=== PATIENT | female | born 2000 | race Caucasian/White ===

== ENCOUNTER 2019-04-26 10:17 | Emergency (ER) | payer OTHER ==
--- NOTE | 2019-04-26 11:41 | ED ---
Seizure - HPI Summary HPI Summary: Patient is a 19-year-old female who presents emergency department after a seizure that occurred just prior to arrival. Patient notes chest history of tonic clonic seizures and follows with a neurologist in [facility]. Patient is currently going to [facility]. Patient states she typically has one seizure per month. Patient was here last week with a seizure as well. Patient states it is abnormal for her to have seizures this close together. Patient states she was walking through campus today when she had a seizure and was cared for by security. Patient denies any injuries or pain currently. Patient back to her baseline. Patient currently taking Lamictal 300 mg twice a day. She states that her Lamictal was increased last week. Patient notes she has had a productive cough for about one week. She also notes she has not been sleeping well the last few days. Symptoms are moderate in severity. No current modifying factors. 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 - History Of Current Complaint Chief Complaint: EDSeizure Time Seen by Provider: 04/26/19 11:05 Hx Obtained From: Patient - Allergies/Home Medications Allergies/Adverse Reactions: Allergies Allergy/AdvReac Type Severity Reaction Status Date / Time No Known Allergies Allergy Verified 04/26/19 10:23 PMH/Surg Hx/FS Hx/Imm Hx Previously Healthy: Yes Infectious Disease History: No Infectious Disease History: Denies: Traveled Outside the [place] in Last 30 Days - Family History Known Family History: Positive: Non-Contributory - Social History Occupation: Student Lives: Dormitory/Roommates Alcohol Use: None Hx Substance Use: Yes Substance Use Type: Reports: Marijuana Substance Use Comment - Amount & Last Used: medical Smoking Status (MU): Never Smoked Tobacco Review of Systems Constitutional: Negative Negative: Fever, Chills Eyes: Negative ENT: Negative Cardiovascular: Negative Positive: Cough. Negative: Shortness Of Breath Gastrointestinal: Negative Negative: Abdominal Pain, Vomiting, Diarrhea Genitourinary: Negative Negative: dysuria Musculoskeletal: Negative Skin: Negative Neurological: Other - seizure Negative: Headache All Other Systems Reviewed And Are Negative: Yes Physical Exam Triage Information Reviewed: Yes Vital Signs On Initial Exam: Initial Vitals Pulse Pulse Ox 95 100 04/26/19 10:19 04/26/19 10:19 Vital Signs Reviewed: Yes Appearance: Positive: Well-Appearing - Pt. sitting up in bed in NAD. Skin: Positive: Warm, Dry Head/Face: Positive: Normal Head/Face Inspection Eyes: Positive: Normal, EOMI, ANDRES, Conjunctiva Clear ENT: Positive: Pharynx normal, TMs normal, Other Neck: Positive: Supple, Nontender Respiratory/Lung Sounds: Positive: Other - Mild rhonchi in RLL Cardiovascular: Positive: Normal, RRR Abdomen Description: Positive: Nontender, Soft Musculoskeletal: Positive: Normal, Strength/ROM Intact Neurological: Positive: Normal, Alert, Oriented to Person Place, Time, CN Intact II-III Psychiatric: Positive: Affect/Mood Appropriate Diagnostics - Vital Signs Vital Signs Temp Pulse Resp BP Pulse Ox 04/26/19 10:20 97.5 F 92 16 121/67 100 04/26/19 10:19 95 100 - Laboratory Result Diagrams: 04/26/19 10:49 04/26/19 10:49 Lab Statement: Any lab studies that have been ordered have been reviewed, and results considered in the medical decision making process. Course/Dx - Course Course Of Treatment: Pt. presenting for evaluation after seizure. Pt. sustained no injuries. Exam unremarkable and she is back to her baseline. Basic labs and cxr obtained given week plus productive cough. CBC unremarkable. CMP shows mild elevation in glucose of 138, AST and ALT of 89 and 210. Pending lamictal level. U/A negative. Pt. has had no further seizure activity in ED. Case discussed with Dr. Gusman who recommends waiting for lamictal level before making any med changes. He feels elevated liver enzymes may be secondary to pt.' s high does of Prozac. He recommends pt. contact her neurologist and psychiatrist today for further recommendations. Will call pt. with lamictal level. Pt. understands and agrees with plan. Will return if sxs change or worsen. - Diagnoses Provider Diagnoses: Seizure Discharge ED - Sign-Out/Discharge Documenting (check all that apply): Patient Departure Patient Received Moderate/Deep Sedation with Procedure: No - Discharge Plan Condition: Improved Disposition: HOME Patient Education Materials: Recurrent Seizures in Adults (ED) Forms: *School Release Referrals: [facility] @ [Outside] Additional Instructions: Call your neurologist and psychiatrist today to discuss your medication Will call if Lamictal level is low Schedule a follow up appointment with health clinic in 2-3 days Increase fluids and rest Return to ER if symptoms change or worsen - Billing Disposition and Condition Condition: IMPROVED Disposition: Home
[2019-04-26 11:59] LABS: HIV 4th Generation Nonreactive (Nonreactive)
[2019-04-26 13:05] LABS: ABS Monocytes 0.3 10^3/ul (0-0.8); ABS Neutrophils 2.4 10^3/ul (1.5-7.7); Eosinophil % 0.9 %; Hematocrit 38 % (35-47); Hemoglobin 12.9 g/dL (12.0-16.0); Lymphocyte % 27.9 %; Mean Corpuscular HGB Conc 34 g/dL (31-36); Mean Corpuscular Hemoglobin 33 pg (27-31); Mean Corpuscular Volume 96 fL (80-97); Mean Platelet Volume 8.4 fL (7.4-10.4); Platelet Count 336 10^3/uL (150-450); Red Blood Count 3.98 10^6 /uL (3.70-4.87); Red Cell Distribution Width 13 % (10-15); White Blood Count 3.8 10^3/uL (3.5-10.8)
[2019-04-26 13:12] LABS: Albumin 4.6 g/dL (3.2-5.2); Albumin/Globulin Ratio 2.1 (1-3); BUN/Creatinine Ratio 14.3 (8-20); Calcium 9.4 mg/dL (8.6-10.3); EGFR African American 94.4 (>60); Globulin 2.2 g/dL (2-4); Potassium 3.8 mmol/L (3.5-5.0); Total Bilirubin 0.4 mg/dL (0.2-1.0); Total Protein 6.8 g/dL (6.4-8.9)
[2019-04-26 13:18] LABS: HCG Pregnancy 0.6 mIU/mL
[2019-04-26 13:26] LABS: TSH (Thyroid Stimulating Horm) 1.71 mcIU/mL (0.34-5.60)
[2019-04-26 13:56] LABS: Urine Appearance Cloudy; Urine Bacteria 2+ (Absent); Urine Bilirubin Negative (Negative); Urine Blood 1+ (Negative); Urine Color Yellow; Urine Glucose Negative (Negative); Urine Ketones Trace (Negative); Urine Nitrite Negative (Negative); Urine Protein Negative (Negative); Urine Red Blood Cell Trace(0-2/hpf) (Absent); Urine Specific Gravity 1.019 (1.010-1.030); Urine Squamous Epithelial Cell Present (Absent); Urine Urobilinogen Negative (Negative); Urine White Blood Cell Trace(0-5/hpf) (Absent)
[2019-04-26 15:02] VITALS: BP 126/72
== END 2019-04-26 15:01 | disposition home or self-care (01) ==
LOC: ED 10:17
DX: R56.9 Unspecified convulsions (principal); Z79.899 Other long term (current) drug therapy
CPT/HCPCS: 36415; 71046; 80053; 80175; 81003; 81015; 84443; 84702; 85025; 87086; 87389; 99283

== ENCOUNTER 2019-05-02 11:54 | Emergency (ER) | payer OTHER ==
--- NOTE | 2019-05-02 12:26 | ED ---
Neurological HPI - HPI Summary HPI Summary: This patient is a 19 year old F presenting to [facility] by EMS with a chief complaint of vertigo since 824. Pt had seizure on 04/26/19, and pt had an increase in dosage in her medication, lamictal. As pt had two seizures in a two week time frame, and previously to that she was only having seizures once every few months. After the increase in dosage pt started feeling side effects of vertigo. Then this morning she went to class, and felt vertigo, nausea, and when she tried to walk to convenience store to get food and she could properly walk. Patient reports resolved double vision. Pt took the medication around 0730 , and the symptoms began around 0825. Pt reports the last medication she took caused even worse symptoms. And then when she began the lower dosage of lamictal it had no side effect. Pt reports the symptoms can last for hours. Pt s neurologist is Dr. Sandoval, and Dr. Arriaga at [facility]. Pt has a PMHx of epilepsy, prediabetes, and depression. Medications reviewed. Allergies noted - History of Current Complaint Chief Complaint: EDNeurologicalDeficit Stated Complaint: NAUSEA/ TREMORS PER EMS Time Seen by Provider: 05/02/19 12:03 Hx Obtained From: Patient Onset/Duration: Gradual Onset, Started days ago, Still Present Timing: Intermittent Episodes Lasting: - hours Number of Seizures: 1 - 04/26/19 Pain Intensity: 0 Pain Scale Used: 0-10 Numeric Character: Room Spinning, Dizzy, Visual Changes Aggravating: Medication Change Alleviating: Spontanious Resolution Associated Signs and Symptoms: Positive: Unsteady Gait, Visual Changes, Dizziness, Nausea/Vomiting, Change in Medication Related Hx: Seizure - Allergy/Home Medications Allergies/Adverse Reactions: Allergies Allergy/AdvReac Type Severity Reaction Status Date / Time No Known Allergies Allergy Verified 04/26/19 10:23 PMH/Surg Hx/FS Hx/Imm Hx Neurological History: Reports: Hx Seizures, Other Neuro Impairments/Disorders - Epilepsy Psychiatric History: Reports: Hx Depression - Surgical History Surgical History: None Infectious Disease History: No Infectious Disease History: Denies: Traveled Outside the [place] in Last 30 Days - Family History Known Family History: Negative: Hypertension, Diabetes Family History: Only FHx from father's side known - Social History Occupation: Student Alcohol Use: None Hx Substance Use: Yes Substance Use Type: Reports: Marijuana Substance Use Comment - Amount & Last Used: medical Smoking Status (MU): Never Smoked Tobacco Review of Systems Positive: Blurred Vision Positive: Nausea Neurological: Other - dizziness, unsteady gait All Other Systems Reviewed And Are Negative: Yes Physical Exam - Summary Physical Exam Summary: Constitutional: Well-developed, Well-nourished, Alert. (-) Distressed Skin: Warm, Dry HENT: Normocephalic; Atraumatic Eyes: Conjunctiva normal Neck: Musculoskeletal ROM normal neck. (-) JVD, (-) Stridor, (-) Tracheal deviation Cardio: Rhythm regular, rate normal, Heart sounds normal; Intact distal pulses; The pedal pulses are 2+ and symmetric. Radial pulses are 2+ and symmetric. (-) Murmur Pulmonary/Chest wall: Effort normal. (-) Respiratory distress, (-) Wheezes, (-) Rales Abd: Soft. (-) Tenderness, (-) Distension, (-) Guarding, (-) Rebound Musculoskeletal: (-) Edema Lymph: (-) Cervical adenopathy Neuro: Alert, Oriented x3, Strength normal, Cranial nerves II-XII are grossly intact. (-) Dysmetria, (-) Nystagmus, (-) Ataxia by finger to nose testing, (-) Sensory deficit. Walks with steady gait, Psych: Appear anxious, tearful Triage Information Reviewed: Yes Vital Signs On Initial Exam: Initial Vitals Temp Pulse Resp BP Pulse Ox 98.9 F 88 16 123/77 97 05/02/19 12:04 05/02/19 12:04 05/02/19 12:04 05/02/19 12:04 05/02/19 12:04 Vital Signs Reviewed: Yes Diagnostics - Vital Signs Vital Signs Temp Pulse Resp BP Pulse Ox 05/02/19 12:04 98.9 F 88 16 123/77 97 - Laboratory Result Diagrams: 05/02/19 12:38 05/02/19 12:38 Lab Statement: Any lab studies that have been ordered have been reviewed, and results considered in the medical decision making process. Re-Evaluation - Re-Evaluation First Eval Re-Evaluation Time: 13:28 Comment: Discussed results and plan of care Course/Dx - Course Course Of Treatment: Patient is here with daily vertigo symptoms after taking her increased dose of Lamictal. HEENT had a normal neurologic exam here with improvement of symptoms evaluated. Patient had a CBC and CMP performed which are both unremarkable. Patient is not . Patient was offered a neurology consultation here but declined. Patient is going to take medical leave from school to go back to her neurologist is in the next couple of days. - Diagnoses Provider Diagnoses: Medication side effects, Vertigo, Epilepsy, Depression Discharge ED - Sign-Out/Discharge Documenting (check all that apply): Patient Departure - Discharge Patient Received Moderate/Deep Sedation with Procedure: No - Discharge Plan Condition: Stable Disposition: HOME Patient Education Materials: Vertigo (ED), Epilepsy (ED) Referrals: [facility] [[employer], [employer], OTHER] - As Soon As Possible Additional Instructions: Call neurologist at [facility] as soon as possible to discuses side effect lamictal. PLEASE RETURN TO EMERGENCY DEPARTMENT FOR ANY NEW OR WORSENING SYMPTOMS. Please follow up with your primary care physician. Please make all follow-ups as soon as possible unless I advise you otherwise - Billing Disposition and Condition Condition: STABLE Disposition: Home - Attestation Statements Document Initiated by Telmaibe: Yes Documenting Scribe: Natalie Live Provider For Whom Telmaibe is Documenting (Include Credential): Rafiq Donovan MD Scribe Attestation: Natalie Lopez, scribed for Rafiq Donovan MD on 05/02/19 at 1832. Scribe Documentation Reviewed: Yes Provider Attestation: The documentation as recorded by the Natalie coreas accurately reflects the service I personally performed and the decisions made by me, Rafiq Donovan MD Status of Scribe Document: Viewed
[2019-05-02 12:48] LABS: ABS Lymphocytes 1.5 10^3/ul (1.0-4.8); ABS Monocytes 0.5 10^3/ul (0-0.8); ABS Neutrophils 5.1 10^3/ul (1.5-7.7); Eosinophil % 0.4 %; Hematocrit 40 % (35-47); Hemoglobin 13.8 g/dL (12.0-16.0); Lymphocyte % 20.6 %; Mean Corpuscular HGB Conc 35 g/dL (31-36); Mean Corpuscular Hemoglobin 33 pg (27-31); Mean Corpuscular Volume 94 fL (80-97); Mean Platelet Volume 7.8 fL (7.4-10.4); Platelet Count 399 10^3/uL (150-450); Red Blood Count 4.22 10^6 /uL (3.70-4.87); Red Cell Distribution Width 14 % (10-15); White Blood Count 7.2 10^3/uL (3.5-10.8)
[2019-05-02 13:07] LABS: ALT 115 U/L (7-52); AST 55 U/L (13-39); Albumin 4.7 g/dL (3.2-5.2); Alkaline Phosphatase 110 U/L (34-104); Anion Gap 7 mmol/L (2-11); BUN/Creatinine Ratio 11.7 (8-20); Blood Urea Nitrogen 11 mg/dL (6-24); CO2 Carbon Dioxide 28 mmol/L (22-32); Calcium 9.6 mg/dL (8.6-10.3); Chloride 102 mmol/L (101-111); EGFR Non-African American 75.2 (>60); Globulin 2.3 g/dL (2-4); Glucose 152 mg/dL (70-100); Potassium 3.8 mmol/L (3.5-5.0); Sodium 137 mmol/L (135-145)
[2019-05-02 13:14] LABS: HCG Pregnancy < 0.60 mIU/mL
[2019-05-02 13:39] LABS: TSH (Thyroid Stimulating Horm) 0.78 mcIU/mL (0.34-5.60)
[2019-05-02 14:16] VITALS: BP 121/66
== END 2019-05-02 14:18 | disposition home or self-care (01) ==
LOC: ED 11:54
DX: R42 Dizziness and giddiness (principal); R11.0 Nausea; R26.81 Unsteadiness on feet; T42.6X5A Adverse effect of other antiepileptic and sedative-hypnotic drugs, initial encounter; Y92.9 Unspecified place or not applicable; Z32.02 Encounter for pregnancy test, result negative; G40.909 Epilepsy, unspecified, not intractable, without status epilepticus; F32.9 Major depressive disorder, single episode, unspecified
CPT/HCPCS: 36415; 80053; 84443; 84702; 85025; 99282

== ENCOUNTER 2019-05-06 12:37 | Emergency (ER) | payer OTHER ==
[2019-05-06 13:26] LABS: ABS Lymphocytes 0.5 10^3/ul (1.0-4.8); ABS Monocytes 0.5 10^3/ul (0-0.8); Hematocrit 40 % (35-47); Hemoglobin 13.6 g/dL (12.0-16.0); Lymphocyte % 3.8 %; Mean Corpuscular HGB Conc 34 g/dL (31-36); Mean Corpuscular Hemoglobin 32 pg (27-31); Mean Corpuscular Volume 94 fL (80-97); Platelet Count 353 10^3/uL (150-450); Red Blood Count 4.23 10^6 /uL (3.70-4.87); Red Cell Distribution Width 14 % (10-15); White Blood Count 14.2 10^3/uL (3.5-10.8)
--- NOTE | 2019-05-06 13:27 | ED ---
Neurological HPI - HPI Summary HPI Summary: This patient is a 19 year old F presenting to [facility] accompanied by her mother with a chief complaint of an episode of seizure about 1015 05/06/19 that lasted about 4 minutes long. Patient reports to be confused, foggy, tired, nauseated, vomiting slightly, and experiencing tremors afterwards. Mother reports pt hit her head on the back of a chair. Patient is back to her baseline now, denies headache. Mother reports that her dose of Lamictal was inc to 300 up to 1 month ago per her neurologist at [facility]. Mother reports she used to have partial complex seizures and then back in August 2018 she started having tonic-clonic seizures. Mother reports that the only change was the increase in Lamictal about 3 seizures ago. Mother reports she used to have 1 seizure every 3-4 months but now has them almost once a week now. They have d/w her neurologist about adding a second agent (keppra or Onfi) however they wanted to discuss this with her psychiatrist given hx depression. Patient took her dose of Lamictal at about 0900 this morning, 05/06/19. - History of Current Complaint Chief Complaint: EDSeizure Stated Complaint: SEISURES/REACTION TO MEDS PER PT MOM Time Seen by Provider: 05/06/19 13:10 Hx Obtained From: Patient, Family/Psychology Physician - mother Onset/Duration: Started hours ago, Still Present Pain Intensity: 0 Pain Scale Used: 0-10 Numeric Episode Lasting: Seconds/Minutes - 4 minutes Aggravating: Nothing Alleviating: Nothing Associated Signs and Symptoms: Positive: Confusion, Nausea/Vomiting - Allergy/Home Medications Allergies/Adverse Reactions: Allergies Allergy/AdvReac Type Severity Reaction Status Date / Time No Known Allergies Allergy Verified 05/06/19 12:43 PMH/Surg Hx/FS Hx/Imm Hx Neurological History: Reports: Hx Seizures, Other Neuro Impairments/Disorders - Epilepsy Psychiatric History: Reports: Hx Depression Infectious Disease History: No Infectious Disease History: Denies: Traveled Outside the [place] in Last 30 Days - Family History Known Family History: Positive: Non-Contributory Negative: Hypertension, Diabetes Family History: Only FHx from father's side known - Social History Alcohol Use: None Hx Substance Use: Yes Substance Use Type: Reports: Marijuana Substance Use Comment - Amount & Last Used: medical Hx Tobacco Use: No Smoking Status (MU): Never Smoked Tobacco Review of Systems Positive: Vomiting, Nausea Neurological: Other - seizure, confusion, foggy, tired, and tremors All Other Systems Reviewed And Are Negative: Yes Physical Exam - Summary Physical Exam Summary: Constitutional: Well-developed, Well-nourished, Alert. (-) Distressed Skin: Warm, Dry HENT: Normocephalic; Atraumatic Eyes: Conjunctiva normal Neck: Musculoskeletal ROM normal neck. (-) JVD, (-) Stridor, (-) Nuchal rigidity Cardio: Rhythm regular, rate normal, Heart sounds normal; Intact distal pulses Pulmonary/Chest wall: Effort normal. (-) Respiratory distress, (-) Wheezes, (-) Rales Abd: Soft, (-) tenderness, (-) Distension, (-) Guarding, (-) Rebound Musculoskeletal: (-) Edema Lymph: (-) Cervical adenopathy Psych: Mood and affect Normal Triage Information Reviewed: Yes Vital Signs On Initial Exam: Initial Vitals Temp Pulse Resp BP Pulse Ox 98.5 F 78 16 106/58 95 05/06/19 12:39 05/06/19 12:39 05/06/19 12:39 05/06/19 12:39 05/06/19 12:39 Vital Signs Reviewed: Yes Diagnostics - Vital Signs Vital Signs Temp Pulse Resp BP Pulse Ox 05/06/19 12:39 98.5 F 78 16 106/58 95 - Laboratory Result Diagrams: 05/06/19 13:19 05/06/19 13:19 Lab Statement: Any lab studies that have been ordered have been reviewed, and results considered in the medical decision making process. Re-Evaluation - Re-Evaluation First Eval Re-Evaluation Time: 14:20 Comment: Jillian recommends talking to the neurologist at [facility]. Second Eval Comment: 3:45 discussed with mom and patient that the on-call neurologist for her neurologist at [facility] recommended adding Onfi 5mg qhs if she would like. Patient states she will think about it, prescription sent to pharmacy. Patient isback to baseline, no seizure activity in the department. Course/Dx - Course Course Of Treatment: 19-year-old female with history of epilepsy on Lamictal presents with increased seizure activity. Physical exam unremarkable, no infectious symptoms. Will touch base with neurology regarding adding a second agent, possibly Keppra or ONFI. - Diagnoses Provider Diagnoses: Seizure - Physician Notifications Discussed Care Of Patient With: Desmond Alfredo - Discussed with neurologist director of elementary education for [facility], Dr. Alfredo who states that patient could take ONFI 5 mg at night however she has had hesitancy this in the past. Patient has an appointment next week with her neurologist [facility]. Discharge ED - Sign-Out/Discharge Documenting (check all that apply): Patient Departure - discharge Patient Received Moderate/Deep Sedation with Procedure: No - Discharge Plan Condition: Stable Disposition: HOME Prescriptions: Clobazam TAB (NF) [Onfi TAB(NF)] 5 mg PO QPM 7 Days #7 tab MDD 5 mg Patient Education Materials: Epilepsy (ED) Referrals: No Primary Care Phys,[facility] [Primary Care Provider] - Additional Instructions: You were seen in the emergency department for a seizure. We spoke with the director of elementary education neurologist at [facility] who recommended Onfi 5 mg at night. Please call them and make an appointment with them. Please take a shower and do not take a bath, do not swim alone. Do not drive or operate machinery. Please continue taking medications as prescribed and follow-up with your doctor in the next 1-2 days. Please return to emergency department for continued seizures, or if you're concerned - Billing Disposition and Condition Condition: STABLE Disposition: Home - Attestation Statements Document Initiated by Evette: Yes Documenting Scribe: Soco Rodriguez Provider For Whom Evette is Documenting (Include Credential): Dr. Sahil Knapp MD Scribe Attestation: I, Soco Rodriguez, scribed for Dr. Sahil Knapp MD on 05/06/19 at 1649. Scribe Documentation Reviewed: Yes Provider Attestation: The documentation as recorded by the Soco coreas accurately reflects the service I personally performed and the decisions made by me, Dr. Sahil Knapp MD Status of Scribbill Document: Viewed
[2019-05-06 13:43] LABS: Albumin 4.7 g/dL (3.2-5.2); Calcium 9.4 mg/dL (8.6-10.3); EGFR African American 84.7 (>60); Globulin 2.4 g/dL (2-4); Potassium 4.1 mmol/L (3.5-5.0); Total Bilirubin 0.5 mg/dL (0.2-1.0); Total Protein 7.1 g/dL (6.4-8.9)
[2019-05-06 13:49] LABS: HCG Pregnancy 0.98 mIU/mL
[2019-05-06 15:54] VITALS: BP 119/70
--- NOTE | 2019-05-10 08:16 | PN ---
Progress Note - Progress Note Date of Service: 05/10/19 Note: patient lamtical level is 19.5 so is high. patient still having seizures so will not change medications at this time. left with results. [facility] and no contact info for neurologist. told pt to contact her neurologist with the results
== END 2019-05-06 13:50 | disposition home or self-care (01) ==
LOC: ED 12:37
DX: G40.909 Epilepsy, unspecified, not intractable, without status epilepticus (principal); R41.0 Disorientation, unspecified; R11.2 Nausea with vomiting, unspecified; F32.9 Major depressive disorder, single episode, unspecified
CPT/HCPCS: 36415; 80053; 80175; 84702; 85025; 99283